=== PATIENT | male | born 1995 | race African-American/Black ===

== ENCOUNTER 2018-07-07 04:08 | Emergency (ER) | payer SELFPAY ==
[2018-07-07 04:19] VITALS: BP 124/60; PULSE 67; TEMP 97.4; BMI 19.2
[2018-07-07] MEDS ORDERED: predniSONE 20 MG TABLET (UD) PO ONE (04:22)
[2018-07-07] MEDS ORDERED: ALBUTEROL SO4 2.5/IPRATROPIUM 0.5 INH SOL 3 ML VIAL.NEB. NEB ONE (04:22)
--- NOTE | 2018-07-07 04:22 | PDOC ---
History of Present Illness - General Chief Complaint: Asthma Stated Complaint: ASTHMA Time Seen by Provider: 07/07/18 04:15 History Source: Patient - History of Present Illness Initial Comments: 07/07/18 04:26 23 year old male with wheezing woke up out of sleep with difficulty breathing. patient BIBA for evaluation. patient was given combivent , patient reports that he feels a lot better. patient reports that he ran out of his pump. denies fever/ chills, chest pain, Past History - Past Medical History Allergies/Adverse Reactions: Allergies Allergy/AdvReac Type Severity Reaction Status Date / Time ibuprofen [From Motrin] Allergy Verified 07/07/18 04:12 Penicillins Allergy Verified 07/07/18 04:12 Home Medications: Ambulatory Orders Albuterol 0.083% Nebulizer Melinda [Ventolin 0.083% Nebulizer Soln -] 1 neb NEB Q6H PRN #25 vial 07/07/18 predniSONE [Deltasone -] 40 mg PO DAILY #8 tablet 07/07/18 Asthma: Yes COPD: No - Suicide/Smoking/Psychosocial Hx Smoking History: Never smoked Review of Systems - Review of Systems Able to Perform ROS?: Yes Is the patient limited Mongolian proficient: No Constitutional: No: Symptoms Reported, See HPI, Chills, Diaphoresis, Fever, Loss of Appetite, Malaise, Night Sweats, Weakness, Weight Stable, Unintentional Wgt. Loss, Unexplained wgt Loss, Other Respiratory: Yes: Cough, Wheezing. No: Symptoms reported, See HPI, Orthopnea, Shortness of Breath, SOB with Exertion, SOB at Rest, Stridor, Productive cough, Hemoptysis, Other Neurological: No: Symptoms reported, See HPI, Headache, Numbness, Paresthesia, Pre-Existing Deficit, Seizure, Tingling, Tremors, Weakness, Unsteady Gait, Ataxia, Dizziness, Other *Physical Exam - Vital Signs Last Vital Signs Temp Pulse Resp BP Pulse Ox 97.4 F L 67 18 124/60 100 07/07/18 04:10 07/07/18 04:10 07/07/18 04:10 07/07/18 04:10 07/07/18 04:10 - Physical Exam General Appearance: Yes: Appropriately Dressed Respiratory/Chest: positive: Lungs Clear, Normal Breath Sounds Cardiovascular: positive: Regular Rhythm, Regular Rate Extremity: positive: Normal Capillary Refill, Normal Inspection, Normal Range of Motion Integumentary: positive: Normal Color, Dry, Warm Neurologic: positive: Fully Oriented, Alert, Normal Mood/Affect Progress Note - Progress Note Progress Note: A: asthma exacerbation P: albuterol prednisone *DC/Admit/Observation/Transfer Diagnosis at time of Disposition: Asthma exacerbation, mild - Discharge Dispostion Disposition: HOME - Prescriptions Prescriptions: Albuterol 0.083% Nebulizer Melinda [Ventolin 0.083% Nebulizer Soln -] 1 neb NEB Q6H PRN #25 vial PRN Reason: Asthma predniSONE [Deltasone -] 40 mg PO DAILY #8 tablet - Referrals - Patient Instructions Printed Discharge Instructions: Asthma -- Adult Additional Instructions: use albuterol every 4-6 hours as needed for wheezing your first dose of prednisone was given today. take the next dose tomorrow. follow up with your doctor as soon as possible return to the ER if symptoms worsen. - Post Discharge Activity Forms/Work/School Notes: Back to Work
[2018-07-07] MEDS ORDERED: predniSONE 20 MG TABLET (UD) ONE (04:33)
== END 2018-07-07 04:44 | disposition home or self-care (01) ==
LOC: JER 04:08
DX: J45.901 Unspecified asthma with (acute) exacerbation (principal); Z88.0 Allergy status to penicillin; Z88.6 Allergy status to analgesic agent
CPT/HCPCS: 99281-25